=== PATIENT | male | born 1940 | race Hispanic/Latino ===

== ENCOUNTER → 2024-08-05 | Outpatient (REF) | payer MEDICARE | LOC: CT 13:50 → EDBD 14:00 | PROVIDERS: ATTEND Internal Medicine Pulmonary Disease | DX: J84.10 Pulmonary fibrosis, unspecified (principal); J84.9 Interstitial pulmonary disease, unspecified; J61 Pneumoconiosis due to asbestos and other mineral fibers | CPT/HCPCS: 71250 ==

== ENCOUNTER → 2024-09-29 | Outpatient (REF) | payer MEDICARE | LOC: RAD 15:14 | PROVIDERS: ATTEND Family Medicine | DX: S97.82XA Crushing injury of left foot, initial encounter (principal); M81.0 Age-related osteoporosis without current pathological fracture ==